=== PATIENT | female | born 1970 | race Hispanic/Latino ===

== ENCOUNTER 2019-06-03 14:53 | Emergency (ER) | payer SELFPAY ==
[2019-06-03 15:40] LABS: BASOPHILS % (AUTO) 0.4 % (0.0-5.0); EOSINOPHILS % (AUTO) 1.3 % (0.0-8.0); HEMATOCRIT 21.5 % (36-48); LYMPHOCYTES % (AUTO) 30.3 % (21.0-51.0); MEAN CORPUSCULAR HEMOGLOBIN 25.9 pg (27.0-33.0); MEAN CORPUSCULAR HGB CONC 32.9 g/dL (32.0-36.0); MEAN CORPUSCULAR VOLUME 78.7 fL (79-99); MONOCYTES % (AUTO) 6.4 % (3.0-13.0); NEUTROPHILS % (AUTO) 61.6 % (40.0-77.0); NUCLEATED RED BLOOD CELLS 0.1 % (0.0-0.19); PLATELET COUNT (AUTO) 383 K/uL (130-400); RED BLOOD CELL COUNT(AUTO) 2.73 MIL/uL (4.00-5.50); RED CELL DISTRIBUTION WIDTH 16.6 % (11.0-15.5); WHITE BLOOD COUNT (AUTO) 6.7 K/uL (4.8-10.8)
[2019-06-03 15:40] LABS: APPEARANCE,URINE Clear (CLEAR); BILIRUBIN,URINE Negative (NEGATIVE); COLOR,URINE Yellow (YELLOW); GLUCOSE, URINE (UA) Negative (NEGATIVE); KETONES,URINE Negative (NEGATIVE); LEUKOCYTE ESTERASE ,URINE Negative (NEGATIVE); NITRATE,URINE Negative (NEGATIVE); OCCULT BLOOD,URINE Moderate (NEGATIVE); PH,URINE 5.5 (5.0-8.0); PROTEIN,URINE Negative (NEGATIVE); UROBILINOGEN,URINE 0.2 mg/dL (0.2-1.0)
[2019-06-03 15:46] LABS: HCG,QUAL RESULT NEGATIVE (NEGATIVE)
[2019-06-03 15:48] LABS: AMPHET/METH SCREEN,URINE NEGATIVE (NEGATIVE); BARBITURATE SCREEN, URINE NEGATIVE (NEGATIVE); BENZODIAZEPINES SCREEN,URINE NEGATIVE (NEGATIVE); CANNABINOID SCREEN,URINE NEGATIVE (NEGATIVE); COCAINE SCREEN,URINE NEGATIVE (NEGATIVE); OPIATE SCREEN,URINE NEGATIVE (NEGATIVE); PHENCYCLIDINE SCREEN,URINE NEGATIVE (NEGATIVE)
[2019-06-03 15:52] LABS: CREATININE 0.8 mg/dL (0.5-1.5)
[2019-06-03 15:54] LABS: INR 1.13 (0.85-1.15); PARTIAL THROMBOPLASTIN TIME 24.5 SEC (26.3-35.5); PROTHROMBIN TIME 11.8 SEC (9.6-11.6)
[2019-06-03 15:58] LABS: BACTERIA,URINE Few /HPF (None Seen); WBC,URINE 0-1 /HPF (0-1)
[2019-06-03 16:04] LABS: ALBUMIN 3.5 g/dL (3.5-5.0); BILIRUBIN,TOTAL 0.2 mg/dL (0.2-1.0); THYROID STIMULATING HORMONE 3.65 uIU/mL (0.36-3.74)
== END 2019-06-03 16:38 | disposition home or self-care (01) ==
LOC: EDH 14:53
DX: D64.9 Anemia, unspecified (principal); R06.00 Dyspnea, unspecified; R07.89 Other chest pain; N92.4 Excessive bleeding in the premenopausal period
CPT/HCPCS: 36415; 71045; 80053; 80305; 81001; 81025; 82550; 84443; 84484; 85025; 85378; 85610; 85730; 93005

== ENCOUNTER 2021-11-13 13:07 | Emergency (ER) | payer OTHER ==
[~2021-11-13] VITALS: Ht 162.6 cm; Wt 78.9 kg
[2021-11-13 14:40] VITALS: BP 137/60
[2021-11-13] MEDS ORDERED: KETOROLAC 30MG VIAL (30MG/ML) IM ONE (15:00)
[2021-11-13] MEDS ORDERED: LORAZEPAM 1 MG TABLET PO ONE (15:00)
[2021-11-13 15:35] LABS: APPEARANCE,URINE Clear (CLEAR); BILIRUBIN,URINE Negative (NEGATIVE); COLOR,URINE Yellow (YELLOW); GLUCOSE, URINE (UA) Negative (NEGATIVE); KETONES,URINE Negative (NEGATIVE); LEUKOCYTE ESTERASE ,URINE Negative (NEGATIVE); NITRATE,URINE Negative (NEGATIVE); OCCULT BLOOD,URINE Negative (NEGATIVE); PH,URINE 7.5 (5.0-8.0); PROTEIN,URINE Negative (NEGATIVE)
[2021-11-13 15:41] LABS: BASOPHILS % (AUTO) 0.5 % (0.0-5.0); EOSINOPHILS % (AUTO) 1.9 % (0.0-8.0); HEMATOCRIT 32.3 % (36-48); LYMPHOCYTES % (AUTO) 31.6 % (21.0-51.0); MEAN CORPUSCULAR HEMOGLOBIN 23.9 pg (27.0-33.0); MEAN CORPUSCULAR HGB CONC 29.4 g/dL (32.0-36.0); MEAN CORPUSCULAR VOLUME 81.4 fL (79-99); MONOCYTES % (AUTO) 8.6 % (3.0-13.0); NEUTROPHILS % (AUTO) 56.9 % (40.0-77.0); PLATELET COUNT (AUTO) 375 K/uL (130-400); RED BLOOD CELL COUNT(AUTO) 3.97 MIL/uL (4.00-5.50); RED CELL DISTRIBUTION WIDTH 14.7 % (11.0-15.5); WHITE BLOOD COUNT (AUTO) 6.3 K/uL (4.8-10.8)
[2021-11-13 15:50] LABS: CREATININE 0.7 mg/dL (0.5-1.5); POTASSIUM 3.9 mmol/L (3.5-5.1)
[2021-11-13 15:55] LABS: ALBUMIN 3.9 g/dL (3.5-5.0); BILIRUBIN,TOTAL 0.2 mg/dL (0.2-1.0); TOTAL PROTEIN, SERUM 7.6 g/dL (6.0-8.3)
[2021-11-13] MEDS ORDERED: CYCL-309 PO (16:45)
== END 2021-11-13 17:00 | disposition home or self-care (01) ==
LOC: EDH 13:07
DX: S16.1XXA Strain of muscle, fascia and tendon at neck level, initial encounter (principal); R07.89 Other chest pain; X58.XXXA Exposure to other specified factors, initial encounter; Y93.89 Activity, other specified; Y92.89 Other specified places as the place of occurrence of the external cause; Y99.8 Other external cause status
CPT/HCPCS: 36415; 71045; 80053; 81003; 84484; 85025; 93005; 96372; 99285; J1885

== ENCOUNTER 2022-03-11 21:10 | Emergency (ER) | payer OTHER ==
[~2022-03-11] VITALS: Ht 154.9 cm; Wt 78.9 kg
[~2022-03-11 21:10] MED LIST: CYCL-309 PO
[2022-03-11] MEDS ORDERED: TETRACAINE HCL 0.5% 4 ML OPHTH SOLN ONE (21:23)
[2022-03-11] MEDS ORDERED: FLUORESCEIN SODIUM 1 STRIP STRIP ONE (21:24)
[2022-03-11 21:29] VITALS: BP 134/75
[2022-03-11] MEDS ORDERED: TETRACAINE HCL 0.5% 4 ML OPHTH SOLN OP SCH (21:30)
[2022-03-11] MEDS ORDERED: CIPR1DRO2 OT (21:34)
[2022-03-11] MEDS ORDERED: KETO5DRO82 OP (21:34)
== END 2022-03-11 21:45 | disposition home or self-care (01) ==
LOC: EDH 21:10
DX: S05.02XA Injury of conjunctiva and corneal abrasion without foreign body, left eye, initial encounter (principal); X58.XXXA Exposure to other specified factors, initial encounter; Z79.899 Other long term (current) drug therapy; Y93.89 Activity, other specified; Y92.89 Other specified places as the place of occurrence of the external cause; Y99.8 Other external cause status

== ENCOUNTER 2024-02-07 11:35 | Emergency (ER) | payer BC, OTHER ==
[~2024-02-07] VITALS: Ht 162.6 cm; Wt 79.8 kg
[~2024-02-07 11:35] MED LIST changes: +CIPR1DRO2 OT; +KETO5DRO82 OP
[2024-02-07 11:45] VITALS: BP 133/54; PULSE 67; RESP 20
[2024-02-07] MEDS: ORPHENADRINE 60MG/2ML IM ONE (12:19)
[2024-02-07] MEDS: KETOROLAC 15MG/ML VIAL (15MG/ML) IM ONE (12:19)
[2024-02-07] MEDS ORDERED: METH-662 PO (12:34)
== END 2024-02-07 12:47 | disposition home or self-care (01) ==
LOC: EDH 11:35
DX: M54.12 Radiculopathy, cervical region (principal); M19.90 Unspecified osteoarthritis, unspecified site; Z79.899 Other long term (current) drug therapy; Z79.2 Long term (current) use of antibiotics; Z98.890 Other specified postprocedural states
CPT/HCPCS: 99284; 96372 ×2; J1885; J2360